=== PATIENT | female | born 1955 | race Asian ===

== ENCOUNTER 2017-03-11 15:23 | Day surgery (SDC) | payer OTHER ==
[~2017-03-11] VITALS: Ht 154.9 cm; Wt 75.0 kg
[2017-03-11 16:11] VITALS: BP 164/75; PULSE 48; RESP 27; Ht 154.9 cm; Wt 75.0 kg
[2017-03-11] MEDS ORDERED: ATOR20TA38 PO (17:06)
--- NOTE | 2017-03-11 17:08 | OPPN ---
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
[2017-03-11] MEDS ORDERED: MIDAZOLAM 1 MG/ML 2 ML INJ ONE ×2 (17:14)
[2017-03-11] MEDS ORDERED: FENTAnyl 50 MCG/ML VIAL ONE (17:14)
[2017-03-11 17:25] VITALS: BP 138/81; PULSE 49; RESP 18
--- NOTE | 2017-03-11 23:54 | GILP ---
DATE OF PROCEDURE: NAME OF PROCEDURE: Colonoscopy and biopsy. SURGEON: Juanjo Valles MD PREOPERATIVE DIAGNOSIS: Screening colonoscopy. POSTOPERATIVE DIAGNOSES: 1. Colonoscopy all the way to the cecum. 2. Small sigmoid colon polyp was removed using biopsy forceps. 3. Internal hemorrhoids. INDICATION FOR THE PROCEDURE: Ms. Tanvi Yu is a 61-year-old female patient who was scheduled for screening colonoscopy. The procedure and possible complications were well explained to the patient. She understood and con sented to the procedure. DESCRIPTION OF PROCEDURE: Under the influence of fentanyl and Versed, the colonoscope was carefully introduced in the rectum and under direct vision, it was advanced all the way to the cecum. FINDINGS: The patient had a small sigmoid colon polyp, and it was removed using biopsy forceps. Sh e had internal hemorrhoids. She tolerated the procedure very well, and there was no complication from the procedure. At the end of the procedure, she was awake with stable vital signs, and she was discharged home to the care of her family. IMPRESSION: Please see postoperative diagnoses. PLAN: Next screening colonoscopy in 10 years. Dictated By: JUANJO MAHER/LEONIDAS Conf#: [id number] DID#: [id number]
== END 2017-03-11 17:22 | disposition home or self-care (01) ==
LOC: GIL 15:23
PROVIDERS: ATTEND Internal Medicine Gastroenterology
DX: Z12.11 Encounter for screening for malignant neoplasm of colon (principal); D12.5 Benign neoplasm of sigmoid colon; K64.8 Other hemorrhoids
CPT/HCPCS: 45380; 88305; J2250; J3010; Z7610